=== PATIENT | male | born 1930 | race Caucasian/White ===

== ENCOUNTER 2019-06-11 02:46 | Inpatient (IN) | payer MEDICARE ==
[2019-06-11] MEDS ORDERED: COREG6.25 MG PO (02:50)
[2019-06-11] MEDS ORDERED: LIPITOR40 MG (02:50)
[2019-06-11] MEDS ORDERED: NORVASC10 MG PO (02:50)
[2019-06-11] MEDS ORDERED: BAYER CHEWABLE81 MG (02:50)
[2019-06-11] MEDS ORDERED: FUROSEMIDE20 MG PO (02:51)
[2019-06-11] MEDS ORDERED: LISINOPRIL10 MG (02:51)
[2019-06-11 03:04] LABS: BASOPHILS 0.5 % (0-2); EOSINOPHILS 2.9 % (0-7); HEMATOCRIT 41.2 % (42.0-54.0); HEMOGLOBIN 13.8 g/dL (13.5-17.5); IMMATURE GRANULOCYTES 0.2 % (0-5); MCHC 33.5 g/dL (31.0-37.0); MCV 95.6 fL (80.0-100.0); MEAN PLATELET VOLUME 9.3 fL (7.4-10.4); MONOCYTES 9.5 % (2-11); NEUTROPHILS 54.9 % (40-80); PLATELET COUNT 210 10x3/uL (130-400); RBC 4.31 10x6/uL (4.20-6.10); RDW 12.7 % (11.5-14.5); WBC 5.5 10x3/uL (4.8-10.8)
[2019-06-11 03:14] LABS: CALC OSMOLALITY 275 mosm/kg (275-300); CALCIUM 8.5 mg/dL (8.5-10.1); CARBON DIOXIDE 27.7 mmol/L (21.0-32.0); CHLORIDE - SERUM 99 mmol/L (98-107); CREATININE - SERUM 1.3 mg/dL (0.6-1.3); GLUCOSE 111 mg/dL (74-106); POTASSIUM - SERUM 3.4 mmol/L (3.5-5.1); SODIUM 136 mmol/L (136-145); UREA NITROGEN 21 mg/dL (7-18); eGFR NON AFRICAN AMERICAN 55 mL/min (90-120)
[2019-06-11 03:15] LABS: APTT 26.5 SECONDS (22.8-39.4); INR 0.97 (0.85-1.17); PROTIME 12.9 SECONDS (11.6-15.0)
[2019-06-11 03:28] LABS: ALBUMIN 3.4 g/dL (3.4-5.0); ALKALINE PHOSPHATASE 65 U/L (30-120); ALT (SGPT) 36 U/L (10-68); BILIRUBIN - TOTAL 0.41 mg/dL (0.2-1.3); CKMB 8.2 U/L (0.0-3.6); CREATINE KINASE 518 UL (21-232); MAGNESIUM - SERUM 1.8 mg/dL (1.8-2.4); TROPONIN-I < 0.017 ng/mL (0.000-0.060)
[2019-06-11 03:45] LABS: THYROID STIMULATING HORMONE 4.31 uIU/mL (0.36-3.74)
--- NOTE | 2019-06-11 04:17 | NUR ---
URINE SPECIMEN SENT TO LAB AT THIS TIME.
[2019-06-11 04:20] LABS: BILIRUBIN NEGATIVE (NEGATIVE); GLUCOSE NEGATIVE (NEGATIVE); KETONE NEGATIVE (NEGATIVE); NITRITE NEGATIVE (NEGATIVE); SPECIFIC GRAVITY 1.015 (1.005-1.020); UROBILINOGEN NORMAL (NORMAL)
[2019-06-11 04:27] LABS: UDS - AMPHET NEGATIVE QUAL (NEGATIVE); UDS - BARB NEGATIVE QUAL (NEGATIVE); UDS - BENZO NEGATIVE QUAL (NEGATIVE); UDS - COCAINE NEGATIVE QUAL (NEGATIVE); UDS - OPIATE NEGATIVE QUAL (NEGATIVE); UDS - PCP NEGATIVE QUAL (NEGATIVE); UDS - THC NEGATIVE QUAL (NEGATIVE)
[2019-06-11 05:01] VITALS: BP 141/56; BMI 38.5
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
[2019-06-11 08:03] LABS: CHOL - HDL RATIO 2.8 ratio (2.3-4.9); LDL-HDL RATIO 1.4 ratio (1.5-3.5); THYROID STIMULATING HORMONE 3.53 uIU/mL (0.36-3.74)
[2019-06-11 10:22] VITALS: Wt 136.8 kg
--- NOTE | 2019-06-11 16:22 | NUR ---
The patient's son is here and he is collecting the patient's money, credit cards, and checks. The son explained to him that he needs to stay here and let the folks here help you. He also told him "Dad, I don't think you can drive anymore." The son wants Dr. Campo to please call him so that he can get the whole scoop about the patient's behavior. The patient is talking nonstop. He would not speak with Dr. Dash earlier, but I explained to him that he has to cooperate with the DrMaisha's so that he can leave. He then chose to speak to Dr. Dash.
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
--- NOTE | 2019-06-11 23:12 | NUR ---
B.) PT IS ALERT AND ORIENTED TO SELF ONLY. HE IS VERY CONFUSED TO WHERE HE IS AND WHY HE IS HERE. HE IS ABLE TO AMBULATE ON HIS OWN WITHOUT ASSISTANCE AND MAKES HIS NEEDS KNOWN. HE IS ANXIOUS AND FINDING IT DIFFICULT TO FALL ASLEEP. HE IS PACING THE HALLS. I.) OFFERED PRN 0.5 MG ATIVAN IM FOR ANXIETY. REDIRECT OFTEN R.) COMPLIANT WITH PRN ADMINISTRATION AND DIFFICULT TO REDIRECT. P.) WILL CONTINUE TO MONITOR.
--- NOTE | 2019-06-11 23:40 | NUR ---
PT RESTING CALMLY IN BED EYES CLOSED. NO SIGNS OF DISTRESS NOTED. WILL CONTINUE TO MONITOR.
[2019-06-12 10:53] VITALS: BP 123/72
--- NOTE | 2019-06-12 14:33 | NUR ---
PATIENT HAS REFUSED BATH DESPITE SEVERAL ATTEMPTS.
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
--- NOTE | 2019-06-12 19:20 | NUR ---
B.) PT IS ALERT AND ORIENTED TO SELF ONLY. HE HAD MONEY AND CARDS HIDDEN IN HIS POCKET. 1 INSURANCE [employer] CARD, 1 PHARMACY CARD, 1 DRIVERS LICENSE AND 2 [employer] PACEMAKER ID CARDS. HE HAD 61 DOLLARS AND A BLANK CHECK. HE REFUSES TO HAND IT OVER AT THIS TIME. HE IS PLEASANTLY CONFUSED TO HIS SITUATION. HE IS ABLE TO MAKE HIS NEEDS KNOWN AND AMBULATE WITHOUT ASSIST. I.) PROVIDED PM MEDICATIONS PRESCRIBED. REDIRECT OFTEN. R.) COMPLIANT WITH ALL MEDICATIONS. DIFFICULT TO REDIRECT. P.) WILL CONTINUE TO MONITOR.
[2019-06-12 20:00] VITALS: BP 101/53
[2019-06-13 00:07] VITALS: BP 101/53
[2019-06-13 08:36] VITALS: BP 113/78
--- NOTE | 2019-06-13 08:45 | NUR ---
RECEIVED IN HALLWAY OUTSIDE OF NURSES STATION. CALM AND COOPERATIVE WITH CARE AND ASSESSMENT. NO SEXUALLY INAPPROPRIATE BEHAVIORS. NO AGGRESSION. REDIRECT AND REORIENT NEEDED. EATING BREAKFAST AT THIS TIME. CONTINUE PLAN OF CARE.
--- NOTE | 2019-06-13 13:55 | PN ---
PATIENT:AIRAM LOMBARDI MEDICAL RECORD: [id number] LOCATION:B[facility]ANDA Hein ADMISSION DATE: 06/11/19 PROGRESS NOTE DATE OF SERVICE: 06/12/2019 SUBJECTIVE: The patient easily states that he is really needing to leave. He needs to talk to his . He is concerned about her. He states that he just needs to go to a hotel and that is where he will go. He states that he did sleep well and that the food is okay. OBJECTIVE: The patient's appearance is appropriate. He is alert to person, disoriented to place, time or situation. His speech is slow, low tone, low volume, at times mumbles. His association is loose. His eye contact is fair to good. His insight and judgment is impaired. His thought and concentration, he is circumstantial, easily distracted. His mood is depressed and anxious and easily agitated. His affect is flat, blunt and narrow in range. Mild tremors were noted to his hands bilateral. Anxiety is moderate. His memory is poor for remote and recent events. His hallucinations or psychosis, the patient does not appear to be attending to any visual or auditory hallucinations. His judgment and insight are poor. His son was present today and brought the patient some clothes. He did not talk with the patient stating that he thought that may agitate him. It was reported that the patient's spouse does not want to talk to him. ASSESSMENT: No change in diagnosis. PLAN: To continue to monitor medications and make medication changes as needed. We will help to keep the patient to monitor for safety, and to help stabilize his mood and cognition. Dictated By: Sylvia Hummel APN I have interviewed/examined the above patient and agree with these documented findings. TRANSINT:[id number] Voice Confirmation ID: [id number] DOCUMENT ID: [id number] ZOHAIB THOMPSON MD at 1353 CC: [id number] DICTATION DATE: 06/12/191923 CUSTOM CAR BUILDER: 06/13/19 0723 [facility] IN [facility] [address] [id number]
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
[2019-06-13 20:08] VITALS: BP 88/58
--- NOTE | 2019-06-13 22:30 | NUR ---
PT WANDERING HALLWAY AND WILL NOT FOLLOW VERBAL INSTRUCTIONS. INTRUSSIVE AND WILL WALK UP ON OTHERS. HALDOL 2MG AND ATIVAN 0.5MG IM ADMINISTERED PER ORDERS.
--- NOTE | 2019-06-14 02:44 | NUR ---
B)RECEIVED PATIENT SITTING IN THE DAYROOM. CONFUSED AND DISORIENTED. RELATES HE IS "SOMEWHERE BETWEEN MY MOM AND DADS HOUSE CLOSE TO [place]." RELATES IS HERE "BECAUSE I'M FRIENDS WITH ALOT OF PEOPLE HERE." LO[employer]SE ASSOCIATIONS AND DOES NOT FOLLOW TOPIC OF CONVERSATION. COOPERATIVE WITH STAFF HOWEVER WANDERS IN THE HALLWAY AT ALL HOURS. I)ADMINISTER MEDS AND MONITOR COMPLIANCE. REORIENT NEEDED. R)MED COMPLILANT. POOR REORIENTATION DUE TO IMPAIRED ABILITY TO RETAIN INFORMATION. P)CONTINUE POC AND PROVIDE SAFE ENVIRONMENT.
[2019-06-14 07:13] LABS: RAPID PLASMA REAGIN Non Reactive (Non Reactive)
--- NOTE | 2019-06-14 09:36 | NUR ---
RECEIVED IN HALLWAY OUTSIDE OF NURSES STATION. CALM AND COOPERATIVE WITH CARE AND ASSESSMENT. NO AGGRESSIVE BEHAVIOR. REDIRECT AND REORIENT NEEDED. EATING BREAKFAST AT THIS TIME. CONTINUE PLAN OF CARE.
[2019-06-14 10:52] VITALS: BP 108/70
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
--- NOTE | 2019-06-14 12:21 | NUR ---
Nutrition Follow-up: Diet: Cardiac PO intake: ~78% average x last 6 meals Last BM: 06/12/19. WT: 300# (06/12/19); Admit WT: 299.2# (06/11/19) Meds reviewd. Labs noted: A1c 5.7% (WNL) Recommend continue current diet. RD following.
[2019-06-14 22:36] VITALS: BP 134/65
--- NOTE | 2019-06-14 23:37 | NUR ---
B.) PT IS ALERT AND ORIENTED TO SELF ONLY. HE IS ABLE TO AMBULATE WITHOUT ASSIST AND MAKE HIS NEEDS KNOWN. HE IS CALM AND COOPERATIVE WITH STAFF. I.) PROVIDED PM MEDICATIONS. REDIRECT OFTEN. R.) COMPLIANT WITH ALL MEDICATIONS. EASY TO REDIRECT. P.) WILL CONTINUE TO MONITOR.
[2019-06-15 10:33] VITALS: BP 152/87
--- NOTE | 2019-06-15 12:48 | NUR ---
RECEIVED IN HALLWAY OUTSIDE OF NURSES STATION. CALM AND COOPERATIVE WITH CARE AND ASSESSMENT. NO AGGRESSIVE BEHAVIORS. REDIRECT AND REORIENT NEEDED. EATING LUNCH AT THIS TIME. CONTINUE PLAN OF CARE.
--- NOTE | 2019-06-15 15:31 | PN ---
PATIENT:AIRAM LOMBARDI MEDICAL RECORD: [id number] LOCATION:BRIANDA Diane113 ADMISSION DATE: 06/11/19 PROGRESS NOTE DATE OF SERVICE: 06/14/2019 SUBJECTIVE: The patient's case was discussed with staff. He has no new complaint. OBJECTIVE: The patient appears to be significantly calmer today. He is actually talking to me today without being nearly as evasive and confrontational. He has not been sexually inappropriate with any of the staff or female patients and I have once again cautioned nursing staff to watch him very closely as I have a high degree of suspicion regarding the possibility that he may act out in this way. At this point, I am going to consider a Depo-Provera injection, especially his behaviors become problematic. As he has been here for 2 days without sexually inappropriate behavior, I am going to a table that for now. Unfortunately, he did have some agitation of a general nature last night, did require p.r.n. medication around 10:30 because of the level of disruption. He does not seem to have had a hangover type effect with him. He is awake, alert and does not appear to be at all sedated. I will monitor him for clinical changes. Long-term prognosis is guarded. TRANSINT:[id number] Voice Confirmation ID: [id number] DOCUMENT ID: [id number] ZOHAIB THOMPSON MD at 1531 CC: [id number] DICTATION DATE: 06/14/19 1429 DATABASE REPORT WRITER: 06/15/19 0432 ADM IN [address] [place] [address]
[2019-06-15 21:00] VITALS: BP 128/78
--- NOTE | 2019-06-15 23:45 | NUR ---
B.) PT IS ALERT AND ORIENTED TO SELF ONLY. HE HAS POOR INSIGHT INTO HIS SITUATION. HE IS ABLE TO AMBULATE ON HIS OWN AND MAKE HIS NEEDS KNOWN. HE IS VERY CONFUSED. I.) PROVIDED PM MEDICATIONS PRESCRIBED. REDIRECT OFTEN. R.) COMPLIANT WITH ALL MEDICATIONS. EASY TO REDIRECT. P.) WILL CONTINUE TO MONITOR.
--- NOTE | 2019-06-16 09:00 | NUR ---
RECEIVED IN HALLWAY OUTSIDE OF NURSES STATION. CALM AND COOPERATIVE WITH CARE AND ASSESSMENT. NO AGGRESSIVE BEHAVIOR. NO SEXUALLY INAPPROPRIATE BEHAVIORS. REDIRECT AND REORIENT NEEDED. EATING BREAKFAST AT THIS TIME. CONTINUE PLAN OF CARE.
--- NOTE | 2019-06-16 15:23 | NUR ---
Nutrition Follow-up: Diet: Cardiac PO intake: ~76% average x last 12 meals Last BM: 06/15/19. WT: 300# (06/12/19); Admit WT: 299.2# (06/11/19) Meds reviewed, no new labs. Recommend continue current diet. RD following.
--- NOTE | 2019-06-16 16:47 | PN ---
PATIENT:AIRAM LOMBARDI MEDICAL RECORD: [id number] LOCATION:B[facility]AN[facility] Hein ADMISSION DATE: 06/11/19 PROGRESS NOTE DATE OF SERVICE: 06/15/2019 SUBJECTIVE: The patient's case was discussed with staff. He has no new complaint. OBJECTIVE: The patient is sleeping well. He is also eating reasonably well. He has not been aggressive or sexually inappropriate and appears to have calmed significantly since admission. ASSESSMENT: Dementia. PLAN: It is my opinion that this patient should not be living independently. He is in need of 80-xtcp-z-day supervision. His long-term prognosis is guarded. TRANSINT:[id number] Voice Confirmation ID: [id number] DOCUMENT ID: [id number] ZOHAIB THOMPSON MD at 1647 CC: [id number] DICTATION DATE: 06/15/19 1605 FASHION PATTERNMAKER: 06/15/[address] [facility] [address] [place] [address]
[2019-06-16 18:22] VITALS: BP 168/77
[2019-06-16 20:00] VITALS: BP 118/74
--- NOTE | 2019-06-16 21:17 | NUR ---
B.) PT IS ALERT AND ORIENTED TO SELF ONLY. HE HAS POOR INSIGHT INTO HIS SITUATION. HE IS ABLE TO AMBULATE WITHOUT ASSIST. HE IS ABLE TO EXPRESS NEEDS AND WANTS. HE IS CALM AND COOPERATIVE WITH STAFF. I.) PROVIDED PM MEDICATIONS. REDIRECT OFTEN. R.) COMPLIANT WITH ALL MEDICATIONS. EASY TO REDIRECT AT TIMES. P.) WILL CONTINUE TO MONITOR.
--- NOTE | 2019-06-17 10:00 | NUR ---
ALERT, CALM, COOPERATIVE, PLEASANT MOOD. NO INAPPROPRIATE BEHAVIOR OR AGGRESSION NOTED. MEDS ADMIN PER ORDERS WITH COMPLETE MED COMPLIANCE NOTED. CONTINUE PLAN OF CARE.
[2019-06-17 10:32] VITALS: BP 127/64
[2019-06-17 20:00] VITALS: BP 110/62
--- NOTE | 2019-06-18 00:27 | NUR ---
B)RECEIVED PATIENT SITTING IN THE DAYROOM. POOR INSIGHT INTO THE REASON FOR HOSPITALIZATON. APPROPRIATE INTERACTION WITH STAFF WHEN APPROACHED. DOES NOT INITIATE CONVERSATION. OCCASSIONALLY WILL WANDER INTO ANOTHER PATIENTS ROOM. I)ADMINISTER MEDS AND MONITOR COMPLIANCE. REDIRECT PATIENT WHEN GOES INTO ANOTHER PATIENT'S ROOM. R)MED COMPLIANT. REDIRECTS AND FOLLOWS VERBAL INSTRUCTION. P)CONTINUE POC AND PROVIDE SAFE ENVIRONMENT.
[2019-06-18 10:55] VITALS: BP 138/81
--- NOTE | 2019-06-18 12:06 | NUR ---
The patient is awake and alert, he is being pleasant at this time. He has no insight into his situation. He ambulates independently. He has not shown any aggression. Provide prescribed meds. The patient is compliant with meds and unit milieu. Continue POC.
[2019-06-18 20:00] VITALS: BP 122/78
--- NOTE | 2019-06-19 03:09 | NUR ---
PATIENT IS CONFUSED, BUT PLEASANT , COMPLIANT WITH MEDS. NO BEHAVIORAL ISSUES
[2019-06-19 09:36] VITALS: BP 106/63
[2019-06-19 20:00] VITALS: BP 127/67
--- NOTE | 2019-06-20 01:09 | NUR ---
RECEIVED IN HALLWAY, SITTING IN A CHAIR WITH PEERS AT HIS SIDE. CALM AND COOPERATIVE WITH CARE AND ASSESSMENT. NO SIGNS OF AGGRESSION OR SEXUALLY INAPPROPRIATE BEHAVIOR. REDIRECT AND REORIENT NEEDED. RESTING IN BED WITH EYES CLOSED. CONTINUE PLAN OF CARE
--- NOTE | 2019-06-20 09:00 | NUR ---
RECEIVED IN HALLWAY OUTSIDE OF NURSES STATION. CALM AND COOPERATIVE WITH CARE AND ASSESSMENT. PLEASANT. NO AGGRESSIVE BEHAVIOR. REDIRECT AND REORIENT NEEDED. EATING BREAKFAST AT THIS TIME. CONTINUE PLAN OF CARE.
--- NOTE | 2019-06-20 09:03 | NUR ---
SW SPOKE TO PT'S SON, ЕЛЕНА, AND EVERYTHING IS READY TO GO. BRIDGER STATED PT WOULD DISCHARGE TODAY. ЕЛЕНА VOICED UNDERSTANDING AND THANKED EVERYONE FOR SERVICES.
[2019-06-20] MEDS ORDERED: DONEPEZIL HCL5 MG PO (10:02)
[2019-06-20] MEDS ORDERED: LEXAPRO10 MG PO (10:03)
[2019-06-20] MEDS ORDERED: GEODON20 MG PO (10:03)
[2019-06-20] MEDS ORDERED: VITAMIN D PO (10:04)
[2019-06-20] MEDS ORDERED: VITAMIN B-12250 MC3 PO (10:04)
[2019-06-20 10:55] VITALS: BP 124/51
--- NOTE | 2019-06-20 13:37 | PN ---
PATIENT:AIRAM LOMBARDI MEDICAL RECORD: [id number] LOCATION:B[facility]ANDA Diane113 ADMISSION DATE: 06/11/19 PROGRESS NOTE DATE OF SERVICE: 06/16/2019 SUBJECTIVE: The patient's case was discussed with staff. He has no new complaint. OBJECTIVE: The patient is sleeping better. His behaviors have been good. I still have concerns about potentially sexually inappropriate behavior and have once again cautioned the nursing staff to keep an extra close eye on him for these behaviors. I do not think that he can live alone. I do think he needs 92-ptpb-l-day supervision. ASSESSMENT: Dementia. PLAN: Current medicines have been reviewed and will be maintained. It is my understanding that he has been approved for placement at the [facility] and I think if he does well over the next few days that he could reasonably be transitioned there. TRANSINT:[id number] Voice Confirmation ID: [id number] DOCUMENT ID: [id number] ZOHAIB THOMPSON MD at 1337 CC: [id number] DICTATION DATE: 06/16/19 180 PATIENT SITTER: 06/17/[address] [facility] [address] [id number]
--- NOTE | 2019-06-20 13:37 | PN ---
PATIENT:AIRAM LOMBARDI MEDICAL RECORD: [id number] LOCATION:[facility] ADMISSION DATE: 06/11/19 PROGRESS NOTE DATE OF SERVICE: 06/17/2019 SUBJECTIVE: Care was reviewed with staff. The patient is sitting on the sofa. The patient states that he went fishing today, but he slept like a log last night, and when he got up, he felt really, really good. He stated that breakfast was really good. The patient is compliant with his medications. OBJECTIVE: General appearance is appropriate. He is alert, oriented to person, disoriented to place, time and situation. His speech is soft, low tone, low volume. His associations are loose. Eye contact is good. Judgment and insight impaired. His thought and concentration is distracted. He is able to repeat phrases and able to name some objects. His mood is depressed. His affect is flat and narrow in range. The patient's anxiety is moderate. Memory is poor for recent events, fair for remote events. He does not appear to be attending for any visual or auditory hallucinations. His judgment and insight is poor. ASSESSMENT: No change in diagnosis. PLAN: We will continue to monitor for his mood, his confusion, and his aggression and for inappropriate behaviors. The patient is looking for discharge to more restrictive care. TRANSINT:[id number] Voice Confirmation ID: [id number] DOCUMENT ID: [id number] ZOHAIB THOMPSON MD at 1337 CC: [id number] DICTATION DATE: 06/17/191912 REINFORCER: 06/18/19 0601 ADM IN [facility] [address] [place] [address]
--- NOTE | 2019-06-20 13:37 | PN ---
PATIENT:AIRAM LOMBARDI MEDICAL RECORD: [id number] LOCATION:[facility] ADMISSION DATE: 06/11/19 PROGRESS NOTE DATE OF SERVICE: 06/18/2019 SUBJECTIVE: The patient's care was reviewed with staff. The patient is sitting at the chairs. The patient states that he ate well. The patient did remember my name. However, he states that he slept like a dog. He had a great dinner, but he was late because traffic was heavy. The patient denies any other complaints. Denies any pain or suicidal ideation. OBJECTIVE: General appearance is appropriate. He is alert and oriented to person, disoriented to place, time and situation. His speech is soft, low tone low volume. His associations are loose. His eye contact is good. Judgment and insight are impaired. His thought and concentration is circumstantial. His mood is depressed and his affect is flat, narrow in range. The patient's anxiety is moderate. His memory is poor for recent events, fair for remote. He does not appear to be attending any visual or auditory hallucinations. His judgment and insight is poor and his impulsivity is high. ASSESSMENT: No change in diagnosis. PLAN: We will continue to monitor and start to stabilize his mood, decrease his aggression and monitor for inappropriate behaviors. Treatment plan was reviewed. The patient appears to be tolerating his medications. Dictated By: Sylvia Hummel APN I have interviewed/examined the above patient and agree with these documented findings. TRANSINT:[id number] Voice Confirmation ID: [id number] DOCUMENT ID: [id number] ZOHAIB THOMPSON MD at 1337 CC: [id number] DICTATION DATE: 06/18/19 1219 DIRECTOR SAFETY COUNCIL: 06/18/19 1728 ADM IN [id number] [place] [address]
--- NOTE | 2019-06-20 15:00 | NUR ---
PATIENT DISCHARGED TO [facility]. REPORT CALLED TO [facility]. MED LIST SENT TO [facility]. SON NOTIFED EARLIER OF DISCHARGE TIME. PATIENT BELONGINGS SENT WITH PATIENT.
--- NOTE | 2019-06-21 15:11 | PN ---
PATIENT:AIRAM LOMBARDI MEDICAL RECORD: [id number] LOCATION:[facility] ADMISSION DATE: 06/11/19 PROGRESS NOTE DATE OF SERVICE: 06/19/2019 SUBJECTIVE: The patient's care was reviewed with staff. The patient is standing at sometimes pacing. The patient is concerned that he is locked and has somewhat a little bit of paranoia. The patient does remember his name. Did state he slept very well. Denies any pain or suicidal ideation. OBJECTIVE: His general appearance is appropriate. The patient did consent to taking a shower. He is oriented to person, disoriented to place, time or situation. At times, he has episodes where he does have some greater coherency see. His speech is soft, low tone, low volume. His associations are loose. His eye contact is good. His judgment and insight are impaired. His concentration is circumstantial. His mood is depressed and anxious. His affect is flat, narrow in range. His anxiety is moderate. Memory is poor for both recent and remote. He does not appear to attend to any visual or auditory hallucinations. His judgment and insight are poor. His impulsivity is high. ASSESSMENT: No change in diagnosis. PLAN: We will continue to monitor to stabilize his mood and decrease his aggression and monitor for inappropriate behaviors. Did increase his Geodon 20 mg p.o. from once daily to b.i.d. to see if that will help with his behaviors. Treatment plan was reviewed. The goal is for the patient to be discharged to a memory unit. Dictated By: Sylvia Hummel APN I have interviewed/examined the above patient and agree with these documented findings. TRANSINT:[id number] Voice Confirmation ID: [id number] DOCUMENT ID: [id number] ZOHAIB THOMPSON MD at 1511 CC: [id number] DICTATION DATE: 06/19/19 1950 MANAGER CREDIT: 06/20/19 0749 DIS IN 06/20/19 [id number] [place] [address]
== END 2019-06-20 14:45 | DRG 884 ==
LOC: D.ER 02:46 → D.PSYCH 03:20
PROVIDERS: Family Medicine; ADMIT Psychiatry & Neurology Psychiatry; ATTEND Psychiatry & Neurology Psychiatry
DX: F02.81 Dementia in other diseases classified elsewhere, unspecified severity, with behavioral disturbance (principal); G30.9 Alzheimer's disease, unspecified; E78.5 Hyperlipidemia, unspecified; I10 Essential (primary) hypertension; E53.8 Deficiency of other specified B group vitamins; E55.9 Vitamin D deficiency, unspecified; H10.9 Unspecified conjunctivitis; E78.00 Pure hypercholesterolemia, unspecified

== ENCOUNTER 2019-10-28 16:24 | Emergency (ER) | payer MEDICARE ==
[~2019-10-28] VITALS: Ht 182.9 cm; Wt 104.5 kg
[~2019-10-28 16:24] MED LIST: BAYER CHEWABLE81 MG; COREG6.25 MG PO; DONEPEZIL HCL5 MG PO; FUROSEMIDE20 MG PO; GEODON20 MG PO; LEXAPRO10 MG PO; LIPITOR40 MG; LISINOPRIL10 MG; NORVASC10 MG PO; VITAMIN B-12250 MC3 PO; VITAMIN D PO
[2019-10-28 16:36] VITALS: Ht 182.9 cm; Wt 104.5 kg
[2019-10-28 19:56] LABS: BASOPHILS 0.3 % (0-2); EOSINOPHILS 1.7 % (0-7); HEMATOCRIT 37.7 % (42.0-54.0); HEMOGLOBIN 12.1 g/dL (13.5-17.5); IMMATURE GRANULOCYTES 0.2 % (0-5); LYMPHOCYTES 22.6 % (15-50); MCH 30.3 pg (26.0-34.0); MCHC 32.1 g/dL (31.0-37.0); MCV 94.3 fL (80.0-100.0); MEAN PLATELET VOLUME 9.2 fL (7.4-10.4); MONOCYTES 7.1 % (2-11); NEUTROPHILS 68.1 % (40-80); PLATELET COUNT 198 10x3/uL (130-400); WBC 6.4 10x3/uL (4.8-10.8)
[2019-10-28 20:06] LABS: CALC OSMOLALITY 282 mosm/kg (275-300); CALCIUM 8.6 mg/dL (8.5-10.1); CARBON DIOXIDE 34.1 mmol/L (21.0-32.0); CHLORIDE - SERUM 105 mmol/L (98-107); GLUCOSE 91 mg/dL (74-106); POTASSIUM - SERUM 3.3 mmol/L (3.5-5.1); SODIUM 142 mmol/L (136-145); UREA NITROGEN 12 mg/dL (7-18); eGFR NON AFRICAN AMERICAN 75 mL/min (90-120)
[2019-10-28 20:14] LABS: APTT 26.4 SECONDS (22.8-39.4); INR 1.04 (0.85-1.17); PROTIME 13.6 SECONDS (11.6-15.0)
[2019-10-28 20:15] LABS: D-DIMER-QUANTITATIVE 0.92 ug/mLFEU (0.20-0.54)
[2019-10-28 20:21] LABS: ALBUMIN 3.1 g/dL (3.4-5.0); ALKALINE PHOSPHATASE 81 U/L (30-120); ALT (SGPT) 18 U/L (10-68); BILIRUBIN - TOTAL 0.46 mg/dL (0.2-1.3); CKMB 4.2 U/L (0.0-3.6); CREATINE KINASE 152 UL (21-232); PRO BNP 188 pg/mL (0-450); PROTEIN - SERUM 6.7 g/dL (6.4-8.2)
[2019-10-28 20:26] LABS: TROPONIN-I < 0.017 ng/mL (0.000-0.060)
[2019-10-28] MEDS ORDERED: LASIX20 MG PO (22:48)
[2019-10-29 00:29] VITALS: BP 123/78
== END 2019-10-29 00:32 | disposition home or self-care (01) ==
LOC: D.ER 16:24
PROVIDERS: Family Medicine
DX: R60.0 Localized edema (principal); I10 Essential (primary) hypertension; I25.10 Atherosclerotic heart disease of native coronary artery without angina pectoris